=== PATIENT | male | born 1945 | race Caucasian/White ===

== ENCOUNTER 2022-09-20 09:26 | Inpatient (IN) ==
[2022-09-20 10:09] LABS: Basophils % 0.5 % (0.0-0.8); Eosinophils # 0.1 10*3/uL (0.0-0.87); Eosinophils % 0.9 % (0.00-10.9); Hematocrit 36.4 VOL% (42.0-52.0); Hemoglobin 11.3 GM/DL (14.0-18.0); Immature Granulocytes % 0.4 %; Immature Granulocytes Absolute 0.03 #; Lymphocytes # 1.1 10*3/uL (1.4-4.0); Lymphocytes % 14.2 % (21.2-54.2); Mean Corpuscular Volume 90.5 FL (87-102); Mean Platelet Volume 9.3 FL (9.6-12.0); Monocytes # 0.7 10*3/uL (0.11-0.8); Monocytes % 8.6 % (1.7-12.7); Neutrophils % 75.4 % (38.7-73.9); Platelet Count 225 T/CUMM (130-400); Red Blood Count 4.02 MC/CUMM (3.8-5.5); Red Cell Distribution Width 15.7 % (9.3-17.3)
[2022-09-20 10:28] LABS: Albumin 3.8 G/DL (3.4-5.0); Bilirubin,Total 1.1 MG/DL (0.20-1.00); Calcium 9.2 MG/DL (8.5-10.1); Total Protein 7.5 G/DL (6.4-8.2)
[2022-09-20] MEDS ORDERED: FUROSEMIDE 20 MG/2 ML VIAL IV STA (10:30)
[2022-09-20] MEDS ORDERED: FUROSEMIDE 40 MG/4 ML VIAL ONE (10:39)
[2022-09-20] MEDS ORDERED: GLUCAGON 1 MG VIAL IM PRN (11:58)
[2022-09-20] MEDS ORDERED: ALBUTEROL/IPRATROPIUM 3 ML NEB RESP TX PRN (11:58)
[2022-09-20] MEDS ORDERED: ONDANSETRON 4 MG/2 ML VIAL IV PRN (11:58)
[2022-09-20] MEDS ORDERED: hydrALAZINE 20 MG/1 ML VIAL IV PRN (11:58)
[2022-09-20] MEDS ORDERED: DEXTROSE 10% 250 ML BAG IV PRN (11:58)
[2022-09-20] MEDS ORDERED: ACETAMINOPHEN 325 MG TABLET PO PRN (11:58)
[2022-09-20] MEDS: ENOXAPARIN 40 MG/0.4 ML SYRINGE SUBCUT SCH (12:33)
[2022-09-20] MEDS ORDERED: traZODone 50 MG TABLET PO PRN (13:27)
[2022-09-20] MEDS ORDERED: tiZANidine 4 MG TABLET PO PRN (13:27)
[2022-09-20] MEDS: LOSARTAN 25 MG TABLET PO SCH ×2 (14:07→20:41)
[2022-09-20] MEDS: FENOFIBRATE 145 MG TABLET PO SCH (15:16)
[2022-09-20] MEDS: atenoloL 25 MG TABLET PO SCH (15:16)
[2022-09-20] MEDS: FUROSEMIDE 40 MG/4 ML VIAL IV SCH (18:38)
[2022-09-20] MEDS: INSULIN LISPRO 100 UNIT/ML SUBCUT SCH ×2 (18:38→20:40)
[2022-09-20] MEDS: SIMVASTATIN 10 MG TABLET PO SCH (20:41)
[2022-09-21 06:01] LABS: Basophils # 0.1 10*3/uL (0.0-0.2); Basophils % 0.6 % (0.0-0.8); Eosinophils # 0.1 10*3/uL (0.0-0.87); Hematocrit 34.3 VOL% (42.0-52.0); Hemoglobin 10.7 GM/DL (14.0-18.0); Immature Granulocytes % 0.2 %; Immature Granulocytes Absolute 0.02 #; Lymphocytes # 1.6 10*3/uL (1.4-4.0); Lymphocytes % 18.8 % (21.2-54.2); Mean Corpuscular HGB Conc 31.2 GM/DL (32-36); Mean Corpuscular Volume 89.6 FL (87-102); Mean Platelet Volume 9.3 FL (9.6-12.0); Monocytes # 0.9 10*3/uL (0.11-0.8); Monocytes % 9.8 % (1.7-12.7); Neutrophils % 69.6 % (38.7-73.9); Platelet Count 220 T/CUMM (130-400); Red Blood Count 3.83 MC/CUMM (3.8-5.5); Red Cell Distribution Width 15.5 % (9.3-17.3); White Blood Count 8.6 T/CUMM (4-12)
[2022-09-21 06:17] LABS: Osmolality,Calculated 282.5 MOS/KG (273-304); Potassium 3.6 MMOL/L (3.5-5.1)
[2022-09-21 06:21] LABS: Risk Ratio 4.34; VLDL Cholesterol 21.6 MG/DL
[2022-09-21] MEDS: INSULIN LISPRO 100 UNIT/ML SUBCUT SCH ×4 (08:35→21:59)
[2022-09-21] MEDS: LOSARTAN 25 MG TABLET PO SCH ×2 (10:15→20:51)
[2022-09-21] MEDS: CITALOPRAM 20 MG TABLET PO SCH (10:16)
[2022-09-21] MEDS: PANTOPRAZOLE 40 MG TABLET PO SCH (10:16)
[2022-09-21] MEDS: atenoloL 25 MG TABLET PO SCH (10:16)
[2022-09-21] MEDS: FUROSEMIDE 40 MG/4 ML VIAL IV SCH ×2 (10:16→15:30)
[2022-09-21] MEDS: ASPIRIN EC 81 MG TABLET PO SCH (10:16)
[2022-09-21] MEDS: TAMSULOSIN 0.4 MG CAPSULE PO SCH (10:16)
[2022-09-21] MEDS: FENOFIBRATE 145 MG TABLET PO SCH (10:21)
[2022-09-21] MEDS ORDERED: METOPROLOL TARTRATE 5 MG/5 ML VIAL IV ONE (12:36)
[2022-09-21] MEDS ORDERED: ENOXAPARIN 40 MG/0.4 ML SYRINGE SUBCUT ONE (12:46)
[2022-09-21 12:52] LABS: Basophils # 0.1 10*3/uL (0.0-0.2); Basophils % 0.7 % (0.0-0.8); Eosinophils # 0.1 10*3/uL (0.0-0.87); Eosinophils % 1.3 % (0.00-10.9); Hematocrit 37.9 VOL% (42.0-52.0); Hemoglobin 12.3 GM/DL (14.0-18.0); Immature Granulocytes % 0.3 %; Immature Granulocytes Absolute 0.02 #; Lymphocytes # 1.4 10*3/uL (1.4-4.0); Lymphocytes % 20.8 % (21.2-54.2); Mean Corpuscular HGB Conc 32.5 GM/DL (32-36); Mean Corpuscular Volume 88.3 FL (87-102); Mean Platelet Volume 8.9 FL (9.6-12.0); Monocytes # 0.7 10*3/uL (0.11-0.8); Monocytes % 10.5 % (1.7-12.7); Neutrophils % 66.4 % (38.7-73.9); Platelet Count 230 T/CUMM (130-400); Red Blood Count 4.29 MC/CUMM (3.8-5.5); Red Cell Distribution Width 15.5 % (9.3-17.3); White Blood Count 6.9 T/CUMM (4-12)
[2022-09-21] MEDS ORDERED: ENOXAPARIN 100 MG/ML SYRINGE SUBCUT ONE (12:57)
[2022-09-21] MEDS: ENOXAPARIN 100 MG/ML SYRINGE SUBCUT SCH (13:10)
[2022-09-21 13:15] LABS: Osmolality,Calculated 278.8 MOS/KG (273-304); Potassium 3.4 MMOL/L (3.5-5.1)
[2022-09-21] MEDS ORDERED: AMIODARONE INJ 150 MG in DEXTROSE 5% 100 ML IV ONE (13:18)
[2022-09-21] MEDS ORDERED: AMIODARONE INJ 450 MG in DEXTROSE 5% 241 ML IV SCH (13:30)
[2022-09-21] MEDS: ENOXAPARIN 40 MG/0.4 ML SYRINGE SUBCUT SCH (13:49)
[2022-09-21] MEDS ORDERED: POTASSIUM CHLORIDE 20 MEQ TABLET PO ONE (14:11)
[2022-09-21] MEDS: AMIODARONE INJ 450 MG in DEXTROSE 5% 241 ML IV SCH (19:35)
[2022-09-21] MEDS: POLYETHYLENE GLYCOL POWDER 17 GM PACK PO PRN (20:49)
[2022-09-21] MEDS: ASCORBIC ACID 500 MG TABLET PO SCH (20:50)
[2022-09-21] MEDS: SIMVASTATIN 10 MG TABLET PO SCH (20:50)
[2022-09-21] MEDS: ZALEPLON 5 MG CAPSULE PO PRN (20:50)
[2022-09-21] MEDS: DOCUSATE SODIUM 100 MG CAPSULE PO PRN (20:51)
[2022-09-22] MEDS: ENOXAPARIN 100 MG/ML SYRINGE SUBCUT SCH ×2 (03:15→15:52)
[2022-09-22 04:58] LABS: Basophils # 0.1 10*3/uL (0.0-0.2); Eosinophils # 0.2 10*3/uL (0.0-0.87); Eosinophils % 3.2 % (0.00-10.9); Hematocrit 37.4 VOL% (42.0-52.0); Hemoglobin 11.7 GM/DL (14.0-18.0); Immature Granulocytes % 0.4 %; Immature Granulocytes Absolute 0.03 #; Lymphocytes # 2.5 10*3/uL (1.4-4.0); Lymphocytes % 35.3 % (21.2-54.2); Mean Corpuscular HGB Conc 31.3 GM/DL (32-36); Mean Corpuscular Volume 89.9 FL (87-102); Mean Platelet Volume 9.2 FL (9.6-12.0); Monocytes # 0.9 10*3/uL (0.11-0.8); Monocytes % 12.9 % (1.7-12.7); Neutrophils % 47.2 % (38.7-73.9); Platelet Count 233 T/CUMM (130-400); Red Blood Count 4.16 MC/CUMM (3.8-5.5); Red Cell Distribution Width 15.1 % (9.3-17.3); White Blood Count 7.1 T/CUMM (4-12)
[2022-09-22 05:19] LABS: Calcium 9.4 MG/DL (8.5-10.1); Osmolality,Calculated 277.1 MOS/KG (273-304); Potassium 3.5 MMOL/L (3.5-5.1)
[2022-09-22] MEDS ORDERED: POTASSIUM CHLORIDE 20 MEQ TABLET PO ONE (07:30)
[2022-09-22] MEDS: INSULIN LISPRO 100 UNIT/ML SUBCUT SCH ×4 (09:10→20:13)
[2022-09-22] MEDS: DOCUSATE SODIUM 100 MG CAPSULE PO PRN (09:11)
[2022-09-22] MEDS: atenoloL 25 MG TABLET PO SCH (09:11)
[2022-09-22] MEDS: FENOFIBRATE 145 MG TABLET PO SCH (09:11)
[2022-09-22] MEDS: TAMSULOSIN 0.4 MG CAPSULE PO SCH (09:11)
[2022-09-22] MEDS: ASPIRIN EC 81 MG TABLET PO SCH (09:11)
[2022-09-22] MEDS: LOSARTAN 25 MG TABLET PO SCH ×2 (09:11→20:13)
[2022-09-22] MEDS: PANTOPRAZOLE 40 MG TABLET PO SCH (09:11)
[2022-09-22] MEDS: ASCORBIC ACID 500 MG TABLET PO SCH ×2 (09:11→20:13)
[2022-09-22] MEDS: CITALOPRAM 20 MG TABLET PO SCH (09:11)
[2022-09-22] MEDS: AMIODARONE 200 MG TABLET PO SCH ×2 (09:17→20:13)
[2022-09-22] MEDS: FUROSEMIDE 40 MG/4 ML VIAL IV SCH ×2 (09:17→17:03)
[2022-09-22] MEDS: AMIODARONE INJ 450 MG in DEXTROSE 5% 241 ML IV SCH (11:00)
[2022-09-22] MEDS: LEVOFLOXACIN INJ 500 MG/100 ML PREMIX IV SCH (15:54)
[2022-09-22] MEDS: SIMVASTATIN 10 MG TABLET PO SCH (20:13)
[2022-09-22] MEDS: POLYETHYLENE GLYCOL POWDER 17 GM PACK PO PRN (23:16)
[2022-09-23] MEDS: ENOXAPARIN 100 MG/ML SYRINGE SUBCUT SCH ×2 (01:29→14:14)
[2022-09-23 07:12] LABS: Basophils # 0.1 10*3/uL (0.0-0.2); Basophils % 0.8 % (0.0-0.8); Eosinophils # 0.3 10*3/uL (0.0-0.87); Eosinophils % 3.5 % (0.00-10.9); Hematocrit 38.7 VOL% (42.0-52.0); Hemoglobin 12.1 GM/DL (14.0-18.0); Immature Granulocytes % 0.4 %; Immature Granulocytes Absolute 0.03 #; Lymphocytes # 2.4 10*3/uL (1.4-4.0); Lymphocytes % 31.8 % (21.2-54.2); Mean Corpuscular HGB Conc 31.3 GM/DL (32-36); Mean Corpuscular Volume 87.6 FL (87-102); Mean Platelet Volume 9.4 FL (9.6-12.0); Monocytes # 0.8 10*3/uL (0.11-0.8); Monocytes % 10.6 % (1.7-12.7); Neutrophils % 52.9 % (38.7-73.9); Platelet Count 281 T/CUMM (130-400); Red Blood Count 4.42 MC/CUMM (3.8-5.5); White Blood Count 7.4 T/CUMM (4-12)
[2022-09-23 07:26] LABS: Calcium 9.8 MG/DL (8.5-10.1); Osmolality,Calculated 285.5 MOS/KG (273-304); Potassium 3.7 MMOL/L (3.5-5.1)
[2022-09-23] MEDS: INSULIN LISPRO 100 UNIT/ML SUBCUT SCH ×4 (07:52→21:20)
[2022-09-23] MEDS: CITALOPRAM 20 MG TABLET PO SCH (09:12)
[2022-09-23] MEDS: atenoloL 25 MG TABLET PO SCH (09:12)
[2022-09-23] MEDS: LOSARTAN 25 MG TABLET PO SCH ×2 (09:12→21:19)
[2022-09-23] MEDS: FENOFIBRATE 145 MG TABLET PO SCH (09:13)
[2022-09-23] MEDS: TAMSULOSIN 0.4 MG CAPSULE PO SCH (09:13)
[2022-09-23] MEDS: ASCORBIC ACID 500 MG TABLET PO SCH ×2 (09:13→21:19)
[2022-09-23] MEDS: PANTOPRAZOLE 40 MG TABLET PO SCH (09:13)
[2022-09-23] MEDS: AMIODARONE 200 MG TABLET PO SCH ×2 (09:13→21:20)
[2022-09-23] MEDS: ASPIRIN EC 81 MG TABLET PO SCH (09:13)
[2022-09-23] MEDS: FUROSEMIDE 40 MG/4 ML VIAL IV SCH ×2 (09:16→16:08)
[2022-09-23] MEDS: LEVOFLOXACIN INJ 500 MG/100 ML PREMIX IV SCH (14:10)
[2022-09-23] MEDS: ZALEPLON 5 MG CAPSULE PO PRN (21:19)
[2022-09-23] MEDS: DOCUSATE SODIUM 100 MG CAPSULE PO PRN (21:20)
[2022-09-23] MEDS: POLYETHYLENE GLYCOL POWDER 17 GM PACK PO PRN (21:20)
[2022-09-23] MEDS: SIMVASTATIN 10 MG TABLET PO SCH (21:33)
[2022-09-24] MEDS: ENOXAPARIN 100 MG/ML SYRINGE SUBCUT SCH (03:01)
[2022-09-24] MEDS: INSULIN LISPRO 100 UNIT/ML SUBCUT SCH ×2 (07:43→11:56)
[2022-09-24 08:10] LABS: Basophils # 0.1 10*3/uL (0.0-0.2); Basophils % 1.3 % (0.0-0.8); Eosinophils # 0.2 10*3/uL (0.0-0.87); Hematocrit 38.6 VOL% (42.0-52.0); Hemoglobin 12.2 GM/DL (14.0-18.0); Immature Granulocytes % 0.3 %; Immature Granulocytes Absolute 0.02 #; Lymphocytes # 2.4 10*3/uL (1.4-4.0); Lymphocytes % 34.8 % (21.2-54.2); Mean Corpuscular HGB Conc 31.6 GM/DL (32-36); Mean Corpuscular Volume 88.5 FL (87-102); Mean Platelet Volume 8.7 FL (9.6-12.0); Monocytes # 0.7 10*3/uL (0.11-0.8); Monocytes % 9.8 % (1.7-12.7); Neutrophils % 50.8 % (38.7-73.9); Platelet Count 280 T/CUMM (130-400); Red Blood Count 4.36 MC/CUMM (3.8-5.5); White Blood Count 6.9 T/CUMM (4-12)
[2022-09-24 08:33] LABS: Calcium 9.3 MG/DL (8.5-10.1); Osmolality,Calculated 284.5 MOS/KG (273-304); Potassium 3.6 MMOL/L (3.5-5.1)
[2022-09-24] MEDS: ASPIRIN EC 81 MG TABLET PO SCH (08:44)
[2022-09-24] MEDS: FENOFIBRATE 145 MG TABLET PO SCH (08:44)
[2022-09-24] MEDS: TAMSULOSIN 0.4 MG CAPSULE PO SCH (08:44)
[2022-09-24] MEDS: FUROSEMIDE 40 MG/4 ML VIAL IV SCH (08:44)
[2022-09-24] MEDS: atenoloL 25 MG TABLET PO SCH (08:45)
[2022-09-24] MEDS: LOSARTAN 25 MG TABLET PO SCH (08:45)
[2022-09-24] MEDS: PANTOPRAZOLE 40 MG TABLET PO SCH (08:45)
[2022-09-24] MEDS: AMIODARONE 200 MG TABLET PO SCH (08:45)
[2022-09-24] MEDS: CITALOPRAM 20 MG TABLET PO SCH (08:45)
[2022-09-24] MEDS: ASCORBIC ACID 500 MG TABLET PO SCH (08:45)
[2022-09-24 11:59] VITALS: BP 133/67
[2022-09-24] MEDS ORDERED: CEFDINIR 300 MG CAPSULE PO SCH (21:00)
[2022-09-24] MEDS ORDERED: APIXABAN 5 MG TABLET PO SCH (21:00)
[2022-09-25] MEDS ORDERED: FUROSEMIDE 40 MG TABLET PO SCH (09:00)
== END 2022-09-24 13:06 | disposition home or self-care (01) | DRG 291 ==
LOC: N.ED 09:26 → N.TELES 11:56 → SUATTDRO 11:56 → N.TELES 14:16
PROVIDERS: ADMIT Internal Medicine; ATTEND Internal Medicine